=== PATIENT | male | born 1950 | race Caucasian/White ===

== ENCOUNTER 2018-06-01 19:02 | Outpatient (REF) | payer MEDICARE, SELFPAY ==
[2018-06-01 19:49] LABS: Anion Gap 7.8 mmol/L (3-11); BUN 22 mg/dL (7-18); CO2 30.2 mmol/L (21.0-32.0); CREATININE 1.58 mg/dL (0.70-1.30); Calcium 9.5 mg/dL (8.5-10.1); Chloride 100 mmol/L (98-107); Cholesterol 166 mg/dL (50-200); Estimated GFR 43.83 (mL/min/1.73m2); Glucose 97 mg/dL (70-100); HDL Cholesterol 35 mg/dL (40-60); LDL CHOLESTEROL 90 mg/dL (<100); Potassium 4.5 mmol/L (3.5-5.1); Sodium 138 mmol/L (136-145); Triglyceride 268 mg/dL (30-150)
== END 2018-06-01 19:22 ==
LOC: NCHCN 19:02
PROVIDERS: PCP Physician Assistant; Visit Provider Internal Medicine
DX: I10 Essential (primary) hypertension (principal); E78.5 Hyperlipidemia, unspecified; Z12.5 Encounter for screening for malignant neoplasm of prostate; N40.0 Benign prostatic hyperplasia without lower urinary tract symptoms
CPT/HCPCS: 80048; 80061; 83721; 84153

== ENCOUNTER 2018-07-02 19:16 | Outpatient (REF) | payer MEDICARE, SELFPAY ==
[2018-07-02 20:02] LABS: COMMENT (LAB VIEW ONLY) 170.59 mg/dL; Microalb ug/mg Crea 3.6 ug/mg Cr
[2018-07-06 16:07] LABS: Albumin, Urine % 10.3 %; Comment SEE COMMENTS; Globulins, Urine % 89.7; Total Protein Urine 6 mg/dl
== END 2018-07-02 19:36 ==
LOC: NCHCN 19:16
PROVIDERS: PCP Physician Assistant; Visit Provider Internal Medicine
DX: N18.2 Chronic kidney disease, stage 2 (mild) (principal); Z83.3 Family history of diabetes mellitus
CPT/HCPCS: 86682; 82043; 82570

== ENCOUNTER 2019-05-27 20:22 | Outpatient (REF) | payer MEDICARE, SELFPAY ==
[2019-05-27 19:00] LABS: ALT 42 U/L (16-63); Anion Gap 8.3 mmol/L (3-11); BUN 27 mg/dL (7-18); CO2 27.7 mmol/L (21.0-32.0); CREATININE 1.32 mg/dL (0.70-1.30); Calcium 8.8 mg/dL (8.5-10.1); Chloride 101 mmol/L (98-107); Estimated GFR 53.78 (mL/min/1.73m2); Glucose 90 mg/dL (74-106); LDL CHOLESTEROL 103 mg/dL (<100); Potassium 4.6 mmol/L (3.5-5.1); Sodium 137 mmol/L (136-145)
== END 2019-05-27 20:42 ==
LOC: NCHCN 20:22
PROVIDERS: PCP Physician Assistant; Visit Provider Internal Medicine
DX: I10 Essential (primary) hypertension (principal); N18.2 Chronic kidney disease, stage 2 (mild); E66.9 Obesity, unspecified
CPT/HCPCS: 80048; 83721; 84460

== ENCOUNTER 2020-06-01 15:04 | Outpatient (REF) | payer MEDICARE, SELFPAY ==
[2020-06-01 15:43] LABS: ALT 47 U/L (16-63); Anion Gap 7.8 mmol/L (3-11); BUN 14 mg/dL (7-18); CO2 27.2 mmol/L (21.0-32.0); CREATININE 1.1 mg/dL (0.70-1.30); Calcium 9.3 mg/dL (8.5-10.1); Chloride 102 mmol/L (98-107); Glucose 105 mg/dL (74-106); LDL CHOLESTEROL 81 mg/dL (<100); Potassium 4.6 mmol/L (3.5-5.1); Sodium 137 mmol/L (136-145); TSH 1.27 uIU/mL (0.36-3.74)
[2020-06-05 12:50] LABS: Testosterone, Free 6.51 ng/dL (3.28-12.2); Testosterone, Total 296 ng/dL (240-950)
== END 2020-06-01 15:05 | disposition home or self-care (01) ==
LOC: NCHCN 15:04
PROVIDERS: PCP Internal Medicine; Visit Provider Internal Medicine
DX: I10 Essential (primary) hypertension (principal); E29.1 Testicular hypofunction
CPT/HCPCS: 80048; 83721; 84402; 84403; 84443; 84460

== ENCOUNTER 2020-06-22 14:52 | Outpatient (REF) | payer MEDICARE, SELFPAY ==
[2020-06-23 11:12] LABS: Bacteria Negative HPF (Negative); Crystals Negative HPF (Negative); Epithelial Cells Rare HPF (Negative); Mucus Negative (Negative); RBC Negative HPF (0-2); WBC 0-2 HPF (0-5)
[2020-06-23 11:13] LABS: C & S Indicated? No; Casts Negative LPF (Negative)
== END 2020-06-22 14:53 | disposition home or self-care (01) ==
LOC: NCHCN 14:52
PROVIDERS: PCP Internal Medicine; Visit Provider Internal Medicine
DX: R10.32 Left lower quadrant pain (principal); N28.1 Cyst of kidney, acquired
CPT/HCPCS: 81015; 82043; 82570

== ENCOUNTER 2021-06-07 17:41 | Outpatient (REF) | payer MEDICARE, SELFPAY ==
[2021-06-07 21:05] LABS: HCT 47.9 % (40.0-50.0); HGB 15.5 g/dL (13.5-17.5); MCH 28.3 pg (27.0-33.0); MCHC 32.4 % (32.0-36.0); MCV 87.6 fL (80-95); MPV 10.7 fL (8.0-11.0); Platelet Count 264 10^3/uL (130-400); RBC 5.47 10^6/uL (4.36-5.78); RDW 12.3 % (11.8-14.1); RDW-SD 39.6 fL; WBC 6.93 10^3/uL (4.4-10.8)
[2021-06-07 21:13] LABS: Anion Gap 9.1 mmol/L (3-11); BUN 15 mg/dL (7-18); CO2 29.9 mmol/L (21.0-32.0); CREATININE 1.3 mg/dL (0.70-1.30); Calcium 8.9 mg/dL (8.5-10.1); Chloride 102 mmol/L (98-107); Estimated GFR 54.42 (mL/min/1.73m2); Glucose 79 mg/dL (74-106); Potassium 3.9 mmol/L (3.5-5.1); Sodium 141 mmol/L (136-145)
== END 2021-06-07 17:42 | disposition home or self-care (01) ==
LOC: NCHCN 17:41
PROVIDERS: PCP Internal Medicine; Visit Provider Internal Medicine
DX: H26.9 Unspecified cataract (principal); Z00.00 Encounter for general adult medical examination without abnormal findings; N18.2 Chronic kidney disease, stage 2 (mild)
CPT/HCPCS: 80048; 85027

== ENCOUNTER 2021-06-15 03:52 | Outpatient (CLI) | payer MEDICARE, SELFPAY ==
[2021-06-15 22:36] LABS: COVID-19 RT-PCR UVMMC Result Negative (Negative)
== END 2021-06-15 03:53 | disposition home or self-care (01) ==
LOC: LBO 03:52
PROVIDERS: PCP Internal Medicine; Visit Provider Ophthalmology
DX: Z20.822 Contact with and (suspected) exposure to COVID-19 (principal)
CPT/HCPCS: 87635; U0003; U0005

== ENCOUNTER 2021-06-18 07:55 | Day surgery (SDC) | payer MEDICARE, SELFPAY ==
[2021-06-18] MEDS: Tropicam./Phenyleph. (1/2.5%) 5 ML BTL OS ×3 (08:54→09:05)
[2021-06-18 08:55] VITALS: BP 101/85; PULSE 89; RESP 18; TEMP 36; O2SAT 98
--- NOTE | 2021-06-18 09:43 | ANES.PREOP_ITS ---
General Info Date of Service Date Performed: 06/18/21 Height: 5 ft 7 in Weight: 125.4 kg Body Mass Index (BMI): 43.2 Surgical Procedure: Operation Date: 06/18/21 10:40 Proposed Procedure Side Surgeon p Cataract Extraction with IOL Implant Left Rylan Salinas MD Meds Allergies and Home Medications Allergies Allergy/AdvReac Type Severity Reaction Status Date / Time No Known Allergies Allergy Unverified 06/18/21 08:47 Home Medication Medication Instructions Recorded atorvastatin 20 mg tablet 20 mg PO HS 06/14/21 cetirizine 10 mg tablet (Zyrtec) 10 mg PO DAILY 06/14/21 diclofenac sodium 75 mg 75 mg PO BID 06/14/21 tablet,delayed release lisinopril 20 1 tab PO DAILY 06/14/21 mg-hydrochlorothiazide 25 mg tablet sildenafil 100 mg tablet 100 mg PO DIRECTED 06/14/21 ibuprofen 200 mg tablet 200 mg PO Q6H PRN 06/18/21 Current Visit Medications: Current Medications Generic Name Dose Route Start Last Admin Trade Name Freq PRN Reason Stop Dose Admin Acetaminophen 1,000 mg 06/18/21 06:00 Acetaminophen 500 Mg Tab PO Q4H PRN PRN Miscellaneous Medication 0 ml 06/18/21 06:00 Prednisolone 1%, Moxifloxacin 0.5%, Nepafenac 0.1% 5ml Btl OS DIRECTED [facility] Miscellaneous Medication 0 ml 06/18/21 06:00 06/18/21 09:05 Tropicam./Phenyleph. (1/2.5%) 5 Ml Btl OS 1 drp DIRECTED GIOVANNI Administration Tetracaine HCl 0 ml 06/18/21 06:00 Tetracaine 0.5% 4 Ml Btl OS DIRECTED GIOVANNI PFSH Active Problems Active Problems: Problem Status Onset Code Posterior subcapsular age-related cataract of left eye H25.042 Nuclear sclerotic cataract of left eye H25.12 Cortical cataract of left eye H26.9 Medical History Medical History (Updated 06/18/21 @ 09:01 by Rylan Salinas MD) BPH (benign prostatic hyperplasia) CKD (chronic kidney disease), stage II Drug-induced photosensitivity HLD (hyperlipidemia) HTN (hypertension) Hypogonadism Obesity Osteoarthritis Paroxysmal A-fib Renal cyst Stasis dermatitis Venous insufficiency Surgical History Surgical History (Updated 06/18/21 @ 08:45 by Maura Bird) Hx of thumb surgery right Alcohol Alcohol Intake: never Substance Use Substance use: Never Substance use type: does not use Vital Signs and Lab Results Vital Signs Most Recent Vital Signs in EMR: Most Recent Vital Signs Temp Pulse Resp BP Pulse Ox 36 C L 89 18 101/85 98 06/18/21 08:55 06/18/21 08:55 06/18/21 08:55 06/18/21 08:55 06/18/21 08:55 Lab Results Blood Type / Crossmatch: No Data to Display Complete Blood Count: White Blood Count 6.93 10^3/uL (4.4-10.8) 06/07/21 14:00 06/07/21 Red Blood Count 5.47 10^6/uL (4.36-5.78) 06/07/21 14:00 06/07/21 Hemoglobin 15.5 g/dL (13.5-17.5) 06/07/21 14:00 06/07/21 Hematocrit 47.9 % (40.0-50.0) 06/07/21 14:00 06/07/21 Platelet Count 264 10^3/uL (130-400) 06/07/21 14:00 06/07/21 Complete Metabolic Panel: Sodium Level 141 mmol/L (136-145) 06/07/21 14:00 06/07/21 Potassium Level 3.9 mmol/L (3.5-5.1) 06/07/21 14:00 06/07/21 Chloride Level 102 mmol/L (98-107) 06/07/21 14:00 06/07/21 Carbon Dioxide Level 29.9 mmol/L (21.0-32.0) 06/07/21 14:00 06/07/21 Blood Urea Nitrogen 15 mg/dL (7-18) 06/07/21 14:00 06/07/21 Creatinine 1.3 mg/dL (0.70-1.30) 06/07/21 14:00 06/07/21 Estimated GFR/1.73 m2 54.42 (mL/min/1.73m2) 06/07/21 14:00 06/07/21 Calcium Level 8.9 mg/dL (8.5-10.1) 06/07/21 14:00 06/07/21 Glucose Level 79 mg/dL (74-106) 06/07/21 14:00 06/07/21 Liver Function Panel: No Data to Display Coagulation Panel: No Data to Display Cardiac Panel: No Data to Display Arterial Blood Gas: No Data to Display Venous Blood Gas: No Data to Display Pancreas Panel: No Data to Display Thyroid Panel: No Data to Display Infectious Disease: Coronavirus (COVID-19)(PCR) Negative (Negative) 06/15/21 08:11 06/15/21 Blood Cultures: No Data to Display Toxicology Panel: No Data to Display Anesthesia Assessment and Plan Anesthesia History Personal History: No History of Anesthesia Complications Family History: No Family History of Anesthesia Complications Exercise Tolerance Exercise Tolerance: Metabolic Equivalents>4 Pertinent Negatives Pertinent Negatives: No Symptoms of GERD, No Major Cardiovascular Symptoms or Complaints, No Major Pulmonary Symptoms or Complaints and No History of CVA/TIA Cardiac & Pulmonary Exam Cardiac Exam: Normal S1/S2 Heart Sounds Pulmonary Exam: Clear Bilateral Breath Sounds Implantable Cardiac Device Does patient have a Pacemaker or an ICD?: No Airway Exam Known Difficult Airway: No Mallampati Class: 1 Mouth Opening: Normal (> 3cm) Thyromental Distance: Greater than 3 cm Neck Range of Motion: Full ROM Neck Circumference: Thick Teeth Condition: Normal Dentition and Generalized Poor Dentition ASA Classification ASA Score: ASA 2 Emergency Case?: No NPO Status NPO Status: NPO Clears >2 hours, Solids >8 hours Anesthesia Plan Resuscitation Status: Full Code Anesthesia Technique: MAC Anesthesia Airway Planned: Natural Airway Monitors Used: Standard Monitors
[2021-06-18 09:45] VITALS: BMI 43.2
[2021-06-18] MEDS: Trypan Blue 0.06% 0.5 ML SYR (10:18)
[2021-06-18] MEDS: Tetracaine 0.5% 4 ML BTL OS (10:19)
[2021-06-18] MEDS: Balanced Salt Soln.-PLUS 500 ML BAG (10:20)
[2021-06-18] MEDS: Duovisc Viscoelastic System EACH 1 EACH (10:20)
[2021-06-18] MEDS: Lidocaine 2% Jelly 6 ML SYR (10:21)
[2021-06-18] MEDS: Povidone-Iodine Ophth 30 ML BTL (10:22)
[2021-06-18 10:44] VITALS: BP 127/84; PULSE 79; RESP 16; TEMP 36.3; O2SAT 95
--- NOTE | 2021-06-18 10:46 | W.ANESPOSTOP ---
Postoperative Evaluation Date, Time and Location Date Performed: 06/18/21 Time Performed: 10:46 Patient Location: Day Surgery Unit Vital Signs Most Recent Imported Vital Signs: Most Recent Vital Signs Temp Pulse Resp BP Pulse Ox 36 C L 89 18 101/85 98 06/18/21 08:55 06/18/21 08:55 06/18/21 08:55 06/18/21 08:55 06/18/21 08:55 Most Recent Manually Entered Vital Signs: Adult Blood Pressure: 127/84 Heart Rate: 76 Respirations: 12 Oxygen Saturation (%): 99 Temperature (C): 36.3 C Pain Score (0-10 Scale): 0 Pain Score Most Recent Pain Score: Most Recent Pain Score Pain Level 0 06/18/21 08:55 Assessment Mental Status: Awake (Alert & Oriented to Patient Baseline) Airway and Respiratory Function: Patent airway with normal (patient baseline) respiratory exam Cardiovascular Function: Hemodynamically Stable Hydration Status: Adequately Hydrated Nausea & Vomiting: No Nausea or Vomiting Pain: Pt. Denies Any Pain Peripheral Nerve Block: Patient did not receive a nerve block
--- NOTE | 2021-06-18 10:46 | W.PM.DSUDISC ---
Discharge Plan Disposition Patient Disposition: HOME Condition: Good Discharge Details Attending Provider: Ryaln Salinas Primary Care Provider: Jah Santana Meds and New Rx's Prescriptions: No Action lisinopril-hydrochlorothiazide 20-25 mg Tablet 1 tab PO DAILY 0RF atorvastatin 20 mg Tablet 20 mg PO HS 0RF cetirizine [Zyrtec] 10 mg Tablet 10 mg PO DAILY 0RF sildenafil 100 mg Tablet 100 mg PO DIRECTED 0RF diclofenac sodium 75 mg Tablet,Delayed Release (Dr/Ec) 75 mg PO BID 0RF ibuprofen 200 mg Tablet 200 mg PO Q6H PRN0RF Discharge Instructions Stand Alone Forms: Post-op Topical Cataract, Efra Muro (DSU) Discharge Orders Discharge Orders: Discharge Order (Routine); Ordered 06/18/21 Ordered By: Rylan Salinas DS: Diagnosis Discharge Diagnosis (1) Posterior subcapsular age-related cataract of left eye: Status: Resolved (2) Nuclear sclerotic cataract of left eye: Status: Resolved (3) Cortical cataract of left eye: Status: Resolved
[2021-06-18 10:47] VITALS: BP 127/84; PULSE 76; RESP 12; TEMPC 36.3; O2SAT 99
--- NOTE | 2021-06-18 10:47 | W.PM.OP ---
Date of service: 06/18/21 Time of Service: 10:47 Operative Note Operative Note DATE OF PROCEDURE: 06/18/21 PRE-OP DIAGNOSIS: Dense nuclear/cortical/posterior subcapsular cataract, left eye Poor red reflex, left eye secondary to cataract POST-OP DIAGNOSIS: same PROCEDURE: Cataract extraction using phacoemulsification with intraocular lens implant, left eye, using capsular staining with Vision Blue SURGEON: Rylan Salinas ANESTHESIA TYPE: Local By Surgeon and MAC Refer to Anesthesia Record COMPLICATIONS: None Patient was transported to: same day Patient's condition: stable Implants: Fernando [employer] Fernando / [employer] Tecnis [id number] Indications: Progressive decreased vision due to cataract, left eye, with poor red reflex Procedure Description: CATARACT SURGERY OPERATIVE REPORT PREOPERATIVE DIAGNOSIS: 1. Dense nuclear/cortical/posterior subcapsular cataract, left eye 2. Poor red reflex secondary to #1 POSTOPERATIVE DIAGNOSIS: Same OPERATION: 1. Cataract extraction using phacoemulsification with posterior chamber intraocular lens implant, left eye. 2. Capsular staining with Vision Blue IOL: IOL Rounder And Backer/Model: Fernando & Fernando / RITO Tecnis [id number] IOL Power: + 21 pointdiopters IOL Serial Number: [id number] Optic Diameter: 6.0 mm Haptic/Overall Diameter: 13.0 mm PHACO INFO: Musa [employer]ion Vision System with OZil and Active Fluidics Cumulative Dispersed Energy (CDE): 21.26seconds SURGEON: Rylan Salinas MD, SAMANTHA ANESTHESIA: Monitored A [facility] (MAC), with local sub-tenon's anesthetic infiltration COMPLICATIONS: None SPECIMENS: None INDICATIONS FOR PROCEDURE: The patient is a 70-year-old gentleman with history of diminished visual acuity in his left eye secondary to development of dense nuclear/cortical/posterior subcapsular cataract. Vision is reduced to counting fingers. The option of cataract surgery was offered to the patient and he felt he was symptomatic enough that he wished to proceed. PROCEDURE: The correct surgical eye was identified and marked as the left eye and the pupil was dilated in the preoperative area using mydriatics and cycloplegics. The dilated pupil size was 7.0mm. He elected to proceed without oral sedation. The patient was brought to the operating room where cardiopulmonary monitoring was instituted and surgical time-out was performed, confirming the correct operative eye and IOL power. Topical anesthesia was administered and ophthalmic povidone-iodine 5% was instilled into the conjunctival fornices. Lidocaine gel was applied to the cornea and the flores-ocular area was prepped with Betadine 10% solution and draped in the usual sterile fashion for intraocular surgery, including an aperture drape. A Tegaderm transparent film dressing was cut in half and used to cover the lashes and lid margins. Care was taken to sequester the lashes and lid margins under the Tegaderm dressing. A lid speculum was placed between the lids of the operative eye and the Musa Lux[employer] Revalia operating microscope was maneuvered into position. Willem scissors were then used to make a conjunctival buttonhole approximately 6mm posterior to the limbus in the inferonasal quadrant. Blunt dissection was carried out to expose bare sclera, and a blunt-tipped sub-tenon?s anesthesia cannula was introduced and passed posteriorly along the globe where non-preserved plain lidocaine was injected into posterior sub-Tenon?s space. A sideport knife was used to make a paracentesis port superiorly/superiortemporally. Intraocular phenylephrine/lidocaine was injected int the anterior chamber.. Air was then injected into the anterior chamber, followed by Vision Blue, which was painted over the anterior capsule and then irrigated out using BSS. The anterior chamber was filled with viscoelastic. A 2.4mm keratome knife was used to create a half-thickness groove at the limbus and then to construct a three-plane near-clear corneal tunnel extending 2.0mm into clear cornea at the 3:00 position. A flap was raised on the anterior capsule and capsulorhexis forceps were used to complete a continuous curvilinear capsulorhexis of 5.0 mm. Balanced salt solution was then used to perform cortical cleaving hydrodissection and nuclear hydrodelineation until the lens could be freely rotated within the capsular bag. The lens nucleus was then disassembled and removed within the capsular bag and iris plane using phacoemulsification. Nuclear splitters were used to help crack the lens into 2 heminuclei. There was that fibrotic/rubbery posterior plate which would not crack easily. Additional Viscoat was instilled into the anterior chamber to protect the corneal endothelium. was removed using the 45-degree angled silicone I/A tip with 0.3mm port. The posterior capsule was carefully polished to remove as much residual lens epithelial cells as safely possible. The capsular bag was then inflated and the anterior chamber deepened with viscoelastic. The lens implant described above was inserted into the capsular bag using the RITO Gay Injector. A Kuglen hook was used to dial the IOL into position. Residual viscoelastic was then removed first from posterior to the IOL, then from the anterior chamber using the I/A handpiece. The lens implant was noted to center nicely within the capsular bag. The incisions were stromally hydrated, and the anterior chamber was reformed using BSS. Then 0.5cc of moxifloxacin 1.0mg/ml were injected into the capsular bag and anterior chamber. The incisions were checked with a Weck spear and found to be secure. Several drops of ophthalmic povidone-iodine 5% were then applied to the eye followed by two drops of Imprimis combination prednisolone/moxifloxacin/nepafenac solution. The drapes were removed and a clear plastic protective eye shield was placed over the eye. The patient was then returned to Same Day Surgery in stable condition.
== END 2021-06-18 11:00 | disposition home or self-care (01) ==
PROVIDERS: PCP Internal Medicine; Visit Provider Ophthalmology
PROC: (CPT 66984; principal; 2021-06-18 10:30)
DX: H25.042 Posterior subcapsular polar age-related cataract, left eye (principal); I12.9 Hypertensive chronic kidney disease with stage 1 through stage 4 chronic kidney disease, or unspecified chronic kidney disease; N18.2 Chronic kidney disease, stage 2 (mild); I48.0 Paroxysmal atrial fibrillation
CPT/HCPCS: 66984; V2632

== ENCOUNTER 2022-02-28 14:46 | Outpatient (REF) | payer MEDICARE, SELFPAY ==
--- NOTE | 2022-02-28 13:15 | PAPNONF_PTH ---
PATIENT: Lenny Ballesteros LOC: [facility] U#:[id number] AGE/SX: 71/M ROOM: RE02/28/[address]: Gilmer Burgess MD : [id number] BED: DIS: 02/28/2022 SPEC #: [id number] RECD: 02/28/22 18:10 STATUS: ZAKIYA REQ #: [id number] YENNY: 02/28/22 13:[address]: Gilmer Burgess DEPT: [facility] Cytology RECD BY: Prabha Tyler ENTERED: 02/28/22 18:10 SP TYPE: MERLY WEAVER DR: Jah Santana Tissues: 1 - BODY FLUID CYTO(NOT S/U/N/EM)[facility] Procedures: BODY FLUID CYTO(NOT SPU/UR/NIP/ENDOM)[facility] Comments: [id number] (REFRIGERATED)
== END 2022-02-28 14:47 | disposition home or self-care (01) ==
LOC: LBN 14:46
PROVIDERS: PCP Internal Medicine; Visit Provider Otolaryngology
DX: K11.3 Abscess of salivary gland (principal)
CPT/HCPCS: 88104

== ENCOUNTER 2022-06-06 12:14 | Outpatient (REF) | payer MEDICARE, SELFPAY ==
[2022-06-06 19:30] LABS: Anion Gap 6.3 mmol/L (3-11); BUN 18 mg/dL (7-18); CO2 30.7 mmol/L (21.0-32.0); CREATININE 1.3 mg/dL (0.70-1.30); Calcium 9.4 mg/dL (8.5-10.1); Calculated LDL 64 mg/dL (<100); Chloride 103 mmol/L (98-107); Cholesterol 145 mg/dL (<200); Estimated GFR 58.37 (mL/min/1.73m2); Glucose 138 mg/dL (74-106); HDL Cholesterol 39 mg/dL (40-60); Potassium 4.1 mmol/L (3.5-5.1); Sodium 140 mmol/L (136-145); Triglyceride 213 mg/dL (<150)
== END 2022-06-06 12:15 | disposition home or self-care (01) ==
LOC: NCHCN 12:14
PROVIDERS: PCP Internal Medicine; Visit Provider Internal Medicine
DX: R10.31 Right lower quadrant pain (principal)
CPT/HCPCS: 80048; 80061

== ENCOUNTER 2023-07-16 17:01 | Outpatient (REF) | payer MEDICARE, SELFPAY ==
[2023-07-16 20:46] LABS: Hemoglobin A1C 6.1 % (<5.7)
[2023-07-16 20:57] LABS: Anion Gap 6.6 mmol/L (3-11); BUN 19 mg/dL (7-18); CO2 26.4 mmol/L (21.0-32.0); CREATININE 1.5 mg/dL (0.70-1.30); Calcium 9.3 mg/dL (8.5-10.1); Calculated LDL 80 mg/dL (<100); Chloride 101 mmol/L (98-107); Cholesterol 156 mg/dL (<200); Estimated GFR 48.85 (mL/min/1.73m2); Glucose 90 mg/dL (74-106); HDL Cholesterol 38 mg/dL (40-60); Potassium 4.2 mmol/L (3.5-5.1); Sodium 134 mmol/L (136-145); Triglyceride 191 mg/dL (<150)
== END 2023-07-16 17:02 | disposition home or self-care (01) ==
LOC: NCHCN 17:01
PROVIDERS: PCP Internal Medicine; Referring Provider Internal Medicine; Visit Provider Internal Medicine
DX: E78.5 Hyperlipidemia, unspecified (principal); I10 Essential (primary) hypertension; R73.09 Other abnormal glucose; E66.8 Other obesity
CPT/HCPCS: 80048; 80061; 83036

== ENCOUNTER 2024-04-23 19:21 | Outpatient (REF) | payer MEDICARE, SELFPAY ==
[2024-04-23 20:01] LABS: ALT 32 U/L (16-63); Anion Gap 8.9 mmol/L (3-11); BUN 18 mg/dL (7-18); CO2 27.1 mmol/L (21.0-32.0); CREATININE 1.5 mg/dL (0.70-1.30); Calcium 9.6 mg/dL (8.5-10.1); Calculated LDL 65 mg/dL (<100); Chloride 103 mmol/L (98-107); Cholesterol 140 mg/dL (<200); Estimated GFR 48.55 (mL/min/1.73m2); Glucose 83 mg/dL (74-106); HDL Cholesterol 42 mg/dL (40-60); Potassium 4.2 mmol/L (3.5-5.1); Sodium 139 mmol/L (136-145); Triglyceride 168 mg/dL (<150)
== END 2024-04-23 19:22 | disposition home or self-care (01) ==
LOC: NCHCN 19:21
PROVIDERS: PCP Internal Medicine; Visit Provider Internal Medicine
DX: I10 Essential (primary) hypertension (principal)
CPT/HCPCS: 80048; 80061; 84460